=== PATIENT | female | born 1940 | race Caucasian/White ===

== ENCOUNTER → 2019-12-07 | Outpatient (CLI) | payer OTHER ==
[~2019-12-07] MED LIST: ACTOS15 MG PO; ALBUTEROL2.5 MG/0.5 INH; ALEVE220 M1 PO; AMARYL2 MG PO; ANALPRAM HC 2.530 GM RECTAL; ASPIRIN325 PO; BACTRIM DS TAB1 EACH PO; BENADRYL25 MG PO; BENICAR40 MG PO; CEPHALEXIN500 MG PO; COLACE100 MG PO; COZAAR 50 MG TA50 M2 PO; DELTA D3400 UNIT PO; DIFLUCAN150 MG OR; DIFLUCAN200 MG PO; DILTIAZEM ER240 M1 PO; DOXYCYCLINE 10100 MG PO; ENOXAPARIN30 MG/0.1 SUBQ; EYE HEALTH ADU1 EACH PO; FAMOTIDINE 40 M40 M1 PO; FISH OIL 1,001000 M2 PO; FLOXIN OTI0.3 %/5 M1 OPHTHALMIC; FUROSEMIDE 40 M40 M1 PO; HYDROCODON-ACE1 EAC7 PO; HYDROCODON-ACE1 EACH PO; HYDROCODONE-AP1 EAC6 PO; KEFLEX500 MG PO; KETOROLAC 0.5% E5 ML OPHTHALMIC; KLOR-CON PO; LANTUSSOLASTAR IJ; LASIX 40 MG TAB40 MG PO; LEVEMIR SUBQ; LEXAPRO 10 MG T10 M1 PO; LIDODERM 5%1 PATC1 TRANSDERM; LIPITOR 20 MG T20 M1 PO; LORTAB 5 MG/5001 TA1 PO; MAGNESIUM OXID400 MG PO; MELATONIN3 MG; MICARDIS40 MG PO; MUCINEX TA600 MG/TA2 PO; MUCINEX600 MG PO; MURO-128 OPHTH3.5 G1 OPHTHALMIC; NEPHROCAPS QT1 EACH PO; NEURONTIN 300300 M1 PO; OMEGA-3 KRILL1 EACH PO; OMEGA-31000 MG PO; OXYBUTYNIN 5 MG5 M2 PO; PEPCID20 MG PO; PHILLIPS500 MG; PRAVACHOL; PRAVACHOL40 MG PO; PRED-FORTE OPHTH1 M1 OPHTHALMIC; PRILOSEC40 MG PO; SIMVASTATIN40 MG PO; STOOL SOFTENER1 EAC2 PO; STOOL SOFTENER240 MG PO; TYLENOL325 MG PO; VESICARE 5 MG TA5 MG PO; VITAMIN D3400 UNIT PO; ZPAK OR
== END ==
LOC: SJCVC 12:54
PROVIDERS: ATTEND Internal Medicine Cardiovascular Disease
DX: I44.0 Atrioventricular block, first degree (principal); R94.31 Abnormal electrocardiogram [ECG] [EKG]; I48.0 Paroxysmal atrial fibrillation; I10 Essential (primary) hypertension; E11.9 Type 2 diabetes mellitus without complications; G47.33 Obstructive sleep apnea (adult) (pediatric); E78.1 Pure hyperglyceridemia; E78.00 Pure hypercholesterolemia, unspecified; I25.10 Atherosclerotic heart disease of native coronary artery without angina pectoris; E78.5 Hyperlipidemia, unspecified; Z79.899 Other long term (current) drug therapy; Z82.49 Family history of ischemic heart disease and other diseases of the circulatory system; Z79.4 Long term (current) use of insulin; Z87.891 Personal history of nicotine dependence

== ENCOUNTER → 2020-01-05 | Outpatient (CLI) | payer OTHER | LOC: SJCVCIMAG 10:29 | PROVIDERS: ATTEND Internal Medicine Cardiovascular Disease | DX: I48.0 Paroxysmal atrial fibrillation (principal); I25.10 Atherosclerotic heart disease of native coronary artery without angina pectoris; E78.5 Hyperlipidemia, unspecified; I10 Essential (primary) hypertension; I48.91 Unspecified atrial fibrillation; E11.9 Type 2 diabetes mellitus without complications; Z79.4 Long term (current) use of insulin; Z87.891 Personal history of nicotine dependence; Z79.899 Other long term (current) drug therapy ==

== ENCOUNTER → 2020-06-13 | Outpatient (CLI) | payer OTHER | LOC: SJCVC 13:42 | PROVIDERS: ATTEND Internal Medicine Cardiovascular Disease | DX: R94.31 Abnormal electrocardiogram [ECG] [EKG] (principal); I44.4 Left anterior fascicular block; I48.0 Paroxysmal atrial fibrillation; I10 Essential (primary) hypertension; E78.00 Pure hypercholesterolemia, unspecified; E78.1 Pure hyperglyceridemia; G47.33 Obstructive sleep apnea (adult) (pediatric); R60.9 Edema, unspecified; Z79.899 Other long term (current) drug therapy; Z87.891 Personal history of nicotine dependence ==

== ENCOUNTER → 2020-07-25 | Outpatient (CLI) | payer OTHER | LOC: SJCVCIMAG 07:33 | PROVIDERS: ATTEND Internal Medicine Cardiovascular Disease | DX: I11.9 Hypertensive heart disease without heart failure (principal); R94.31 Abnormal electrocardiogram [ECG] [EKG]; G47.33 Obstructive sleep apnea (adult) (pediatric); I48.0 Paroxysmal atrial fibrillation; D68.59 Other primary thrombophilia; I87.8 Other specified disorders of veins; E11.9 Type 2 diabetes mellitus without complications; D64.9 Anemia, unspecified; E78.5 Hyperlipidemia, unspecified; Z98.890 Other specified postprocedural states; Z90.710 Acquired absence of both cervix and uterus; Z82.49 Family history of ischemic heart disease and other diseases of the circulatory system; Z87.891 Personal history of nicotine dependence; Z79.4 Long term (current) use of insulin; Z79.899 Other long term (current) drug therapy ==

== ENCOUNTER → 2020-09-13 | Outpatient (CLI) | payer OTHER ==
[~2020-09-13] MED LIST changes: +ALLOPURINOL 10100 M3 PO; +AMARYL2 M1 PO; +MELATONIN5 MG PO; +NEURONTIN100 MG PO; +TORSEMIDE20 MG PO; +VITAMIN C500 M2 PO; +VITAMIN D 3 PO; +XARELTO20 MG PO
[2020-09-13 13:44] VITALS: BP 119/57
[2020-09-13 14:25] VITALS: BP 119/53
--- NOTE | 2020-09-13 14:54 | NUR ---
ARRIVED PER WHEELCHAIR WITH SON. TEACHING DONE ON MEDICATION AND IRN DEFICIENCY ANEMIA. LITERATURE GIVEN. IV STARTED WITHOUT DIFFICULTY AND TOLERATED INFUSION OF VENOFER WELL. POST BP 119/53. DC PER WHEELCHAIR WITH SON. TO RETURN ON FRIDAY FOR NEXT INFUSION.
== END ==
LOC: OPONC
PROVIDERS: ATTEND Family Medicine
DX: D50.9 Iron deficiency anemia, unspecified (principal)
CPT/HCPCS: 95000

== ENCOUNTER → 2020-09-15 | Outpatient (CLI) | payer OTHER ==
[2020-09-15 13:18] VITALS: BP 120/52
[2020-09-15 13:55] VITALS: BP 122/60
--- NOTE | 2020-09-15 14:10 | NUR ---
HERE FOR 2ND OF 5 VENOFER INFUSIONS. REPORTS DOING WELL POST FIRST INFUSION AND FEELS SHE IS ALREADY FEELING BETTER, BREATHING BETTER. NOTE THAT PATIENT WAS ALSO RECENTLY STARTED ON TORSEMIDE FOR LE EDEMA AND ALSO STATES THAT SHE FEELS THAT IS DECREASING HER EDEMA. REVIEWED PLAN WITH PT. VENOFER INFUSED OVER 30 MIN WITHOUT INCIDENT, NO S/S REACTION. VSS POST. DISMISSED IN STABLE CONDITION. SCHEDULED TO RETURN AGAIN ON FRIDAY.
== END ==
LOC: OPONC
PROVIDERS: ATTEND Family Medicine
DX: D50.9 Iron deficiency anemia, unspecified (principal)
CPT/HCPCS: 95000

== ENCOUNTER → 2020-09-18 | Outpatient (CLI) | payer OTHER ==
[2020-09-18 11:27] VITALS: BP 127/52
[2020-09-18 12:26] VITALS: BP 133/52
--- NOTE | 2020-09-18 12:36 | NUR ---
HERE FOR THIRD VENOFER INFUSION. TOLERATED INFUSION WITHOUT ADVERSE REACTION. POST BP STABLE. IV DCD AND PATIENT DISCHARGED PER WHEELCHAIR WITH DAUGHTER. TO RETURN ON FRIDAY FOR NEXT INFUSION.
== END ==
LOC: OPONC
PROVIDERS: ATTEND Family Medicine
DX: D50.9 Iron deficiency anemia, unspecified (principal)
CPT/HCPCS: 95000

== ENCOUNTER → 2020-09-20 | Outpatient (CLI) | payer OTHER ==
[2020-09-20 13:05] VITALS: BP 134/62
[2020-09-20 14:05] VITALS: BP 124/54
--- NOTE | 2020-09-20 17:08 | NUR ---
HERE FOR DAY #4 OF 5 INFUSIONS OF VENOFER. REPORTS TOLERATING EACH WELL WITHOUT ANY NOTED SIDE EFFECTS. DID WELL AGAIN TODAY, VSS, NO COMPLAINTS OTHER THAN KNEE PAIN POST CORTISONE INJECTIONS YESTERDAY AT THE [facility]TH[facility] OFFICE. DISMISSED IN STABLE CONDITION. WILL RETURN AGAIN FRIDAY FOR LAST DOSE.
== END ==
LOC: OPONC 12:04
PROVIDERS: ATTEND Family Medicine
DX: D50.9 Iron deficiency anemia, unspecified (principal)
CPT/HCPCS: 95000

== ENCOUNTER → 2020-09-22 | Outpatient (CLI) | payer OTHER ==
[2020-09-22 14:05] VITALS: BP 110/57
[2020-09-22 15:05] VITALS: BP 131/47
--- NOTE | 2020-09-22 16:42 | NUR ---
IN FOR FINAL VENOFER INFUSION FOR IRON DEFICIENCY ANEMIA. PATIENT STATED HER BREATHING IS BETTER SINCE SHE RECEIVED HER 1ST 4 INFUSIONS. DENIED SIDE EFFECTS. IV PLACED IN RT WRIST AND INFUSED VENOFER OVER 30 MINUTES. TOLERATED WELL. POST BP GOOD. REMOVED IV AND DISMISSED IN STABLE CONDITION.
== END ==
LOC: OPONC 08:21
PROVIDERS: ATTEND Family Medicine
DX: D50.9 Iron deficiency anemia, unspecified (principal)
CPT/HCPCS: 95000

== ENCOUNTER → 2021-01-03 | Outpatient (CLI) | payer OTHER | LOC: SJCVCIMAG 14:50 | PROVIDERS: ATTEND Internal Medicine Cardiovascular Disease | DX: R94.31 Abnormal electrocardiogram [ECG] [EKG] (principal); I73.9 Peripheral vascular disease, unspecified; M79.661 Pain in right lower leg; M79.662 Pain in left lower leg; M79.89 Other specified soft tissue disorders; I48.0 Paroxysmal atrial fibrillation; E78.00 Pure hypercholesterolemia, unspecified; I10 Essential (primary) hypertension; E11.9 Type 2 diabetes mellitus without complications; D68.59 Other primary thrombophilia; R60.9 Edema, unspecified; I87.2 Venous insufficiency (chronic) (peripheral); R79.89 Other specified abnormal findings of blood chemistry; E78.5 Hyperlipidemia, unspecified; G47.33 Obstructive sleep apnea (adult) (pediatric); Z79.899 Other long term (current) drug therapy; Z87.891 Personal history of nicotine dependence; Z88.5 Allergy status to narcotic agent; Z88.1 Allergy status to other antibiotic agents ==

== ENCOUNTER → 2021-02-06 | Outpatient (CLI) | payer OTHER | LOC: SJCVCIMAG 07:43 | PROVIDERS: ATTEND Internal Medicine Cardiovascular Disease | DX: I44.4 Left anterior fascicular block (principal); R94.31 Abnormal electrocardiogram [ECG] [EKG]; I25.10 Atherosclerotic heart disease of native coronary artery without angina pectoris; I48.0 Paroxysmal atrial fibrillation; E78.00 Pure hypercholesterolemia, unspecified; I12.9 Hypertensive chronic kidney disease with stage 1 through stage 4 chronic kidney disease, or unspecified chronic kidney disease; E11.22 Type 2 diabetes mellitus with diabetic chronic kidney disease; Z79.4 Long term (current) use of insulin; R60.9 Edema, unspecified; G47.33 Obstructive sleep apnea (adult) (pediatric); Z79.899 Other long term (current) drug therapy; Z87.891 Personal history of nicotine dependence; Z88.5 Allergy status to narcotic agent; Z88.6 Allergy status to analgesic agent ==

== ENCOUNTER → 2021-03-12 | Outpatient (CLI) | payer OTHER | LOC: HYPER 07:45 | PROVIDERS: ATTEND Emergency Medicine Emergency Medical Services | DX: E11.622 Type 2 diabetes mellitus with other skin ulcer (principal); L97.812 Non-pressure chronic ulcer of other part of right lower leg with fat layer exposed; L97.822 Non-pressure chronic ulcer of other part of left lower leg with fat layer exposed; I87.2 Venous insufficiency (chronic) (peripheral); E11.22 Type 2 diabetes mellitus with diabetic chronic kidney disease; I12.9 Hypertensive chronic kidney disease with stage 1 through stage 4 chronic kidney disease, or unspecified chronic kidney disease; N18.4 Chronic kidney disease, stage 4 (severe); I48.0 Paroxysmal atrial fibrillation; E78.5 Hyperlipidemia, unspecified; R60.0 Localized edema; E66.9 Obesity, unspecified; Z87.891 Personal history of nicotine dependence; Z79.4 Long term (current) use of insulin; Z79.899 Other long term (current) drug therapy ==

== ENCOUNTER → 2021-03-19 | Outpatient (CLI) | payer OTHER | LOC: HYPER 07:34 | PROVIDERS: ATTEND Emergency Medicine Emergency Medical Services | DX: E11.622 Type 2 diabetes mellitus with other skin ulcer (principal); L97.812 Non-pressure chronic ulcer of other part of right lower leg with fat layer exposed; L97.822 Non-pressure chronic ulcer of other part of left lower leg with fat layer exposed; L84 Corns and callosities; I87.2 Venous insufficiency (chronic) (peripheral); E11.22 Type 2 diabetes mellitus with diabetic chronic kidney disease; I12.9 Hypertensive chronic kidney disease with stage 1 through stage 4 chronic kidney disease, or unspecified chronic kidney disease; N18.4 Chronic kidney disease, stage 4 (severe); I89.0 Lymphedema, not elsewhere classified; R60.0 Localized edema; I48.0 Paroxysmal atrial fibrillation; E78.5 Hyperlipidemia, unspecified; E66.9 Obesity, unspecified; Z87.891 Personal history of nicotine dependence; Z79.4 Long term (current) use of insulin; Z68.42 Body mass index [BMI] 45.0-49.9, adult ==

== ENCOUNTER → 2021-03-26 | Outpatient (CLI) | payer OTHER | LOC: HYPER 07:32 | PROVIDERS: ATTEND Emergency Medicine Emergency Medical Services | DX: E11.622 Type 2 diabetes mellitus with other skin ulcer (principal); L97.812 Non-pressure chronic ulcer of other part of right lower leg with fat layer exposed; L97.822 Non-pressure chronic ulcer of other part of left lower leg with fat layer exposed; I87.2 Venous insufficiency (chronic) (peripheral); E11.22 Type 2 diabetes mellitus with diabetic chronic kidney disease; I12.9 Hypertensive chronic kidney disease with stage 1 through stage 4 chronic kidney disease, or unspecified chronic kidney disease; N18.4 Chronic kidney disease, stage 4 (severe); I89.0 Lymphedema, not elsewhere classified; R60.9 Edema, unspecified; E66.9 Obesity, unspecified; I48.0 Paroxysmal atrial fibrillation; E78.5 Hyperlipidemia, unspecified; Z68.42 Body mass index [BMI] 45.0-49.9, adult; Z87.891 Personal history of nicotine dependence; Z79.4 Long term (current) use of insulin; Z79.899 Other long term (current) drug therapy ==

== ENCOUNTER → 2021-04-09 | Outpatient (CLI) | payer OTHER | LOC: HYPER 08:04 | PROVIDERS: ATTEND Emergency Medicine Emergency Medical Services | DX: E11.622 Type 2 diabetes mellitus with other skin ulcer (principal); L97.812 Non-pressure chronic ulcer of other part of right lower leg with fat layer exposed; L97.822 Non-pressure chronic ulcer of other part of left lower leg with fat layer exposed; I87.2 Venous insufficiency (chronic) (peripheral); E11.22 Type 2 diabetes mellitus with diabetic chronic kidney disease; I12.9 Hypertensive chronic kidney disease with stage 1 through stage 4 chronic kidney disease, or unspecified chronic kidney disease; N18.4 Chronic kidney disease, stage 4 (severe); I89.0 Lymphedema, not elsewhere classified; E78.5 Hyperlipidemia, unspecified; E66.9 Obesity, unspecified; I48.0 Paroxysmal atrial fibrillation; Z68.42 Body mass index [BMI] 45.0-49.9, adult; Z87.891 Personal history of nicotine dependence; Z79.4 Long term (current) use of insulin; Z79.899 Other long term (current) drug therapy ==

== ENCOUNTER → 2021-06-12 | Outpatient (CLI) | payer OTHER | LOC: HYPER 09:54 | PROVIDERS: ATTEND Specialist | DX: E11.622 Type 2 diabetes mellitus with other skin ulcer (principal); I87.333 Chronic venous hypertension (idiopathic) with ulcer and inflammation of bilateral lower extremity; L97.812 Non-pressure chronic ulcer of other part of right lower leg with fat layer exposed; L97.822 Non-pressure chronic ulcer of other part of left lower leg with fat layer exposed; I89.0 Lymphedema, not elsewhere classified; E11.22 Type 2 diabetes mellitus with diabetic chronic kidney disease; I12.9 Hypertensive chronic kidney disease with stage 1 through stage 4 chronic kidney disease, or unspecified chronic kidney disease; N18.4 Chronic kidney disease, stage 4 (severe); R60.9 Edema, unspecified; I48.91 Unspecified atrial fibrillation; E66.09 Other obesity due to excess calories; E78.5 Hyperlipidemia, unspecified; Z87.891 Personal history of nicotine dependence; Z90.49 Acquired absence of other specified parts of digestive tract; Z98.49 Cataract extraction status, unspecified eye; Z90.710 Acquired absence of both cervix and uterus; Z98.890 Other specified postprocedural states; Z68.42 Body mass index [BMI] 45.0-49.9, adult; Z79.899 Other long term (current) drug therapy ==

== ENCOUNTER → 2021-08-22 | Outpatient (CLI) | payer OTHER | LOC: HYPER 11:12 | PROVIDERS: ATTEND Emergency Medicine | DX: E11.622 Type 2 diabetes mellitus with other skin ulcer (principal); I87.311 Chronic venous hypertension (idiopathic) with ulcer of right lower extremity; L97.812 Non-pressure chronic ulcer of other part of right lower leg with fat layer exposed; L97.822 Non-pressure chronic ulcer of other part of left lower leg with fat layer exposed; I89.0 Lymphedema, not elsewhere classified; R60.9 Edema, unspecified; E11.22 Type 2 diabetes mellitus with diabetic chronic kidney disease; I12.9 Hypertensive chronic kidney disease with stage 1 through stage 4 chronic kidney disease, or unspecified chronic kidney disease; N18.4 Chronic kidney disease, stage 4 (severe); I48.0 Paroxysmal atrial fibrillation; E78.5 Hyperlipidemia, unspecified; E66.09 Other obesity due to excess calories; Z68.42 Body mass index [BMI] 45.0-49.9, adult; Z87.891 Personal history of nicotine dependence; Z79.899 Other long term (current) drug therapy ==